=== PATIENT | male | born 1955 | race African-American/Black ===

== ENCOUNTER 2022-01-09 10:06 | Day surgery (SDC) | payer MEDICARE ==
[~2022-01-09 10:06] MED LIST: ACETAMINOPHEN 325 MG TAB PO SCH; LACTATED RINGERS 1,000 ML IV SCH; MIDAZOLAM 2 MG/2 ML INJ IV NR
[2022-01-09] MEDS ORDERED: HYDROmorphone 0.5 MG/0.5 ML INJ IV PRN (11:08)
[2022-01-09] MEDS ORDERED: HYDROcodone/ACETAMINOPHEN 5-325 MG TAB PO PRN (11:08)
--- NOTE | 2022-01-09 11:08 | Anesthesia Consultation ---
Anesthesia Consult and Med Hx Date of service: 01/09/22 - Airway Anesthetic Teeth Evaluation: Good ROM Head & Neck: Adequate Mental/Hyoid Distance: Adequate Mallampati Class: Class III Intubation Access Assessment: Possibly Difficult - Pre-Operative Health Status ASA Pre-Surgery Classification: ASA2 Proposed Anesthetic Plan: General - Pulmonary Hx Smoking: Yes (former light smoker quit 2yrs ago) Hx Respiratory Symptoms: No (neg COVID test 01/08/22) - Cardiovascular System Hx Hypertension: Yes (took amlodipine last night) Hx Heart Attack/AMI: No - Central Nervous System CVA: No - Endocrine Hx Renal Disease: No Hx Cirrhosis: No Hx Liver Disease: Yes (hx HCV, 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
--- NOTE | 2022-01-09 11:08 | Anesthesia Day of Surgery ---
Anesthesia Day of Surgery - Day of Surgery Patient Examined: Yes Patient H&P Reviewed: Yes Patient is NPO: Yes
[2022-01-09] MEDS ORDERED: BUPIVACAINE/PF (0.25%) 2.5 MG/ML 30 ML VIAL INFILTRATI ONE (11:18)
[2022-01-09] MEDS ORDERED: LIDOCAINE MPF (2%) 20 MG/1 ML VIAL 5 ML ONE (11:45)
[2022-01-09] MEDS ORDERED: MIDAZOLAM 2 MG/2 ML INJ ONE (11:46)
[2022-01-09] MEDS ORDERED: fentaNYL 100 MCG/2 ML INJ ONE (11:46)
[2022-01-09] MEDS ORDERED: propofoL 200 MG/20 ML VIAL IV ONE (11:46)
[2022-01-09] MEDS ORDERED: ceFAZolin/Water 2 GM/20 ML 2 GM/20 ML SYRINGE IV ONE (11:47)
[2022-01-09] MEDS ORDERED: ePHEDrine SULFATE 50 MG/1 ML INJ ONE (12:25)
[2022-01-09] MEDS ORDERED: SODIUM CHLORIDE 0.9% IRR 1,000 ML BOTTLE IR ONE (12:35)
[2022-01-09] MEDS ORDERED: ceFAZolin/STERILE WATER 2 GM/20 ML SYRINGE IV NR (13:30)
--- NOTE | 2022-01-09 13:45 | Post Operative Note ---
Date of procedure: 01/09/22 Pre-op diagnosis: hydroceles spermatoceles Post-op diagnosis: same Findings: huge Procedure: spermatocelectomy Anesthesia: GETA Surgeon: RIYA GARCIA Estimated blood loss: minimal Pathology: list (sacs) Specimen disposition: to lab Condition: stable Disposition: PACU
--- NOTE | 2022-01-09 13:46 | Discharge Summary ---
Short Stay Discharge Plan Activity: other (no staining ) Weight Bearing Status: Full Weight Bearing Diet: low fat, low cholesterol, low salt Wound: open to air Special Instructions: other (ice x 24 hrs ) Follow up with: PRIMARY CAREMD [Primary Care Provider] - 7 Days RIYA GARCIA MD [Staff Physician] - 7 Days
--- NOTE | 2022-01-09 14:09 | Operative Report ---
DATE OF SURGERY: 01/09/2022 PREOPERATIVE DIAGNOSES: Huge left spermatocele with smaller hydrocele. POSTOPERATIVE DIAGNOSES: Huge left spermatocele with smaller hydrocele. PROCEDURES: Left hydrocele and spermatocelectomy. SURGEON: Nehemias Riggins MD ANESTHESIA: General. FINDINGS: This is a gentleman with a huge left hydrocele and spermatocele, most of it is spermatocele, multiloculated now presents for treatment. DESCRIPTION OF PROCEDURE: The patient was brought to operating room and placed on the operating table. Following induction of anesthesia, placed in supine position, prepped and draped in usual sterile fashion. An oblique incision made over the left hemiscrotum, carried through the skin, superficial fascia. Once we dissected the fascia off the hydrocele approximately 30 mL in the hydrocele was evacuated out and the sac was trimmed and oversewn. The mass was approximately 12 cm, which was a spermatocele multiloculated. The vessels were draped over it, so we had to get in the plane and dissected laterally. This was dissected with the vas and the vessels. At this point, it was opened and the sac was removed and oversewn with a 4-0 Vicryl, I will be closing up the channel. The smaller other loculation was also oversewn and evacuated. Approximately 120 mL of slightly cloudy fluid. At this point, wound was irrigated. A half-inch [place] was placed in the dependent portion of scrotum secured with a 2-0 silk. Fascia was closed with 3-0 and 2-0 chromic, skin with 2-0 chromic. ESTIMATED BLOOD LOSS: Less than 5 mL, brought to recovery in stable condition. TID: [id number] RECEIPT: [id number] Gt/JORGE
--- NOTE | 2022-01-09 14:36 | Post Anesthesia Evaluation ---
- Post Anesthesia Evaluation Patient Participated: Yes Airway Patent: Yes Stable Respiratory Function: Yes Nausea/Vomiting: No Temp > 96.8F: Yes Pain Manageable: Yes Adequeate Hydration: Yes Anesthesia Complications: No
[2022-01-09 15:10] VITALS: BP 142/98
== END 2022-01-09 15:55 | disposition home or self-care (01) ==
LOC: OR 10:06
PROVIDERS: ATTEND Urology
DX: N43.40 Spermatocele of epididymis, unspecified (principal); N43.2 Other hydrocele; I10 Essential (primary) hypertension; Z87.891 Personal history of nicotine dependence; Z79.899 Other long term (current) drug therapy; Z72.89 Other problems related to lifestyle; Z98.890 Other specified postprocedural states
CPT/HCPCS: 54840; 55040; 88302; 88304; J0690; J1170; J2250; J2704; J3010; J3490; J7120